=== PATIENT | male | born 1950 | race Caucasian/White ===

== ENCOUNTER 2017-08-19 06:24 | Day surgery (SDC) | payer OTHER ==
[2017-08-09 10:03] VITALS: BMI 24.0
--- NOTE | 2017-08-09 10:34 | PAT Medication Instructions ---
Service Date Aug 09, 2017. Current Home Medication List Albuterol Hfa (Ventolin Hfa), 2-4 PUFFS INH Q6H PRN for Shortness of Breath Hydrochlorothiazide (Hctz), 25 MG PO QAM Multivitamin (Multivitamin), 1 TAB PO QAM Omeprazole (Prilosec), 40 MG PO QAM Tizanidine (Zanaflex ), 4 MG PO BID PRN for Pain Medication Instructions For Your Scheduled Surgery - Hold the following medications the morning of surgery: Tizanidine (Zanaflex ), 4 MG PO BID PRN for Pain Hydrochlorothiazide (Hctz), 25 MG PO QAM Multivitamin (Multivitamin), 1 TAB PO QAM - Take the following medications the morning of surgery with a sip of water: Albuterol Hfa (Ventolin Hfa), 2-4 PUFFS INH Q6H PRN for Shortness of Breath (if needed) Omeprazole (Prilosec), 40 MG PO QAM - Take the following medications as scheduled the night before surgery: Tizanidine (Zanaflex ), 4 MG PO BID PRN for Pain (if needed) Albuterol Hfa (Ventolin Hfa), 2-4 PUFFS INH Q6H PRN for Shortness of Breath (if needed) If you have any questions please call us at [phone] or [phone] or [phone]
[2017-08-09 11:34] LABS: BASO % 0.2 %; BASO ABS # 0.02 K/uL (0-0.2); EOS % 0.5 %; EOS ABS # 0.05 K/uL (0-0.5); HEMATOCRIT 46.6 % (42-52); HEMOGLOBIN 16.3 g/dL (14.0-18.0); IG# 0.02 K/uL (0.00-0.02); LYMPH % 26.5 %; LYMPH ABS # 2.45 K/uL (1.2-3.4); MEAN CELL VOLUME 94.9 fL (80-100); MEAN CORPUSCULAR HEMOGLOBIN 33.2 pg (25-34); MEAN PLATELET VOLUME 10.7 fL (7.4-10.4); MONO % 10.2 %; MONO ABS # 0.94 K/uL (0.11-0.59); NEUT % 62.4 %; NEUT ABS # 5.76 K/uL (1.4-6.5); PLATELET COUNT 285 K/uL (130-400); RED CELL DISTRIBUTION WIDTH CV 14.9 % (11.5-14.5); RED CELL DISTRIBUTION WIDTH SD 51.5 fL (36.4-46.3); WHITE BLOOD COUNT 9.24 K/uL (4.8-10.8)
[2017-08-09 12:50] LABS: CALCIUM 9.1 mg/dl (8.5-10.1); CREATININE 0.84 mg/dl (0.60-1.40)
[~2017-08-19] VITALS: Ht 172.7 cm; Wt 72.2 kg
[~2017-08-19 06:24] MED LIST: CEFAZOLIN 2000MG IV PUSH 10 ML IV SCH; HYDR25TA4 PO; LACTATED RINGER'S 1000ML 1,000 ML IV SCH; MULT-506 PO; OMEP40CA41 PO; VNTHFA/IN INH; ZNF4 PO
[2017-08-19 07:02] VITALS: BP 157/90; PULSE 70; TEMP 36.5; O2SAT 99; Ht 172.7 cm; Wt 72.2 kg
[2017-08-19] MEDS ORDERED: FENTANYL CITRATE INJ 50 MCG/1 ML 2 ML VIAL ONE ×2 (07:39→08:57)
[2017-08-19] MEDS ORDERED: MIDAZOLAM HCL 1 MG/ML 2ML VIAL ONE (07:39)
--- NOTE | 2017-08-19 08:03 | History & Physical Bridge Note ---
H&P Re-Evaluation Bridge Note: I have examined the patient, reviewed the History & Physical and in the interval since the performance of the History & Physical I have noted the following changes of clinical significance: No changes noted
[2017-08-19] MEDS ORDERED: EpHEDrine SULFATE INJ 50 MG/ML AMP IV PRN (08:15)
[2017-08-19] MEDS ORDERED: FENTANYL CITRATE INJ 50 MCG/1 ML 2 ML VIAL IV PRN (08:15)
[2017-08-19] MEDS ORDERED: ATROPINE SULFATE 0.1 MG/ML 5ML SYR IV PRN (08:15)
[2017-08-19] MEDS ORDERED: ONDANSETRON INJ 2 MG/ML 2 ML VIAL IV PRN ×2 (08:15→10:00)
[2017-08-19] MEDS ORDERED: BUPIVACAINE/EPINEPHRINE 0.5% MPF 1:200,000 30 ML VIAL ONE (08:26)
[2017-08-19] MEDS ORDERED: PROPOFOL IV EMULSION 10 MG/ML 20 ML VIAL IV ONE (08:52)
[2017-08-19] MEDS ORDERED: LIDOCAINE HCL 2% 2 ML VIAL (20MG/ML) ONE (08:52)
[2017-08-19] MEDS ORDERED: DEXAMETHASONE SOD INJ 4 MG/ML VIAL ONE (08:59)
[2017-08-19] MEDS ORDERED: ONDANSETRON INJ 2 MG/ML 2 ML VIAL ONE (08:59)
[2017-08-19] MEDS ORDERED: EpHEDrine SULFATE 50MG/5ML SYR ONE (09:11)
[2017-08-19] MEDS ORDERED: GLYCOPYRROLATE INJ 0.2 MG/ML VIAL ONE (09:31)
[2017-08-19] MEDS ORDERED: SODIUM CHLORIDE 0.9% 1000ML 1,000 ML IV SCH (09:49)
[2017-08-19] MEDS ORDERED: HYDR-5688 PO (09:51)
--- NOTE | 2017-08-19 09:53 | Discharge Instructions ---
Discharge Instructions Date of Service Aug 19, 2017. Admission Reason for Admission: Left Inguinal Hernia Discharge Discharge Diagnosis / Problem: Left Inguinal Hernia Discharge Goals Goal(s): Decrease discomfort, Improve function Activity Recommendations Activity Limitations: as noted below Lifting Limitations: no more than 10 pounds Exercise/Sports Limitations: until after follow-up appointment May Resume Sexual Activity: after follow-up appointment Shower/Bathe: tomorrow Driving or Machine Use: resume 1 day after discharge . Instructions / Follow-Up Instructions / Follow-Up Please follow-up with Dr. Bauman in the office in 1-2 weeks. Please call the office at [phone] to make a follow-up appointment if you do not have one already. Please call the office with any questions or concerns. Current Hospital Diet Patient's current hospital diet: Discharge Diet Recommended Diet: Regular Diet Procedures Procedures Performed: Open Left Inguinal Hernia Repair with Mesh Pending Studies Studies pending at discharge: no Medical Emergencies . Who to Call and When: Medical Emergencies: If at any time you feel your situation is an emergency, please call 911 immediately. . Non-Emergent Contact Non-Emergency issues call your: Primary Care Provider, Surgeon Call Non-Emergent contact if: temperature is above 101.5, your pain is not controlled, wound has increased drainage, wound has increased redness . "Provider Documentation" section prepared by Tila Gee. . VTE Core Measure Inpt VTE Proph given/why not?: SCD's [place] Drug Monitoring Program Search Results: patient reviewed within database, no issues identified
--- NOTE | 2017-08-19 09:55 | [facility] Operative Report ---
Operative Report Operative Date Aug 19, 2017. Pre-Operative Diagnosis Left Inguinal Hernia Post-Operative Diagnosis Same as preoperative Procedure(s) Performed Open Left Inguinal Hernia Repair with Mesh Surgeon Dr. Moe Bauman Bilingual Teacher Assistant Surgeon(s) Tila Clancy PA-C Estimated Blood Loss 5ml Findings direct and indirect LIH Specimens None per surgeon Anesthesia LMA Complication(s) None Disposition Recovery Room / PACU Description of Procedure After informed consent was obtained the patient was taken to the operating room and placed in the supine position. After successful placement of the laryngeal mask airway, the Hunt catheter was placed and the lower groin was shaved and sterilely prepped and draped in usual fashion. An anal incision was made with 15 blade scalpel and carried down through the soft tissue using electrocautery. The external oblique aponeurosis was skeletonized and incised with a fresh blade. It was extended distally through the external ring as well as for several centimeters proximally using a Metzenbaum scissor. Blunt dissection was then used to delineate the cord and cord structures. I gently tease the cord structures off the pubic bone using a blunt finger. A Liu drain was placed around it. I immediately noted a direct hernia defect that was easily reducible. As we inspected the cord and cord structures we also found an indirect hernia sac. We able to use primarily blunt dissection was small amounts electrocautery to tease the hernia sac back down to its neck and dunk it back into the abdominal cavity where it remained reduced on its own. We then used a piece of polypropylene keyhole mesh as an onlay. It was secured distally to Tal's ligament laterally along the shelving portion of Poupart's ligament and medially along the midline musculature. All suturing was done with 0 Ethibond. The "arms" were wrapped around behind the cord and cord structures and secured underlying muscle. The mesh laid tension free without impinging on the cord. There was adequate hemostasis. We injected Marcaine around the edges of the mesh for postoperative analgesia. The wound was then thoroughly irrigated. We closed the external oblique aponeurosis with 2-0 Vicryl running fashion. Soft tissue was irrigated and closed using 3-0 Vicryl and skin was closed using 4-0 Monocryl. Some additional Marcaine was injected around the incision for analgesia and skin glue used as a dressing the patient was awaken extubated and transferred recovery in stable condition My physician's hair assistant was present throughout the entire case. She helped prepped the patient as well as retraction during my entire dissection. She also helped with wound closure and placed the dressings afterwards I attest to the content of the Intraoperative Record and any orders documented therein. Any exceptions are noted below.
[2017-08-19] MEDS ORDERED: HYDROCODONE/ACETAMIN 5/325MG TAB PO PRN ×2 (10:00)
--- NOTE | 2017-08-19 10:29 | Anesthesiology Progress Note ---
Anesthesia Post Op Note Date & Time Aug 19, 2017 at 10:29 Vital Signs Pain Intensity: 0 Vital Signs Past 12 Hours Date Time Temp Pulse Resp B/P (MAP) Pulse Ox O2 Delivery O2 Flow Rate FiO2 08/19/17 10:20 36.2 81 16 134/78 96 Room Air 08/19/17 10:10 82 16 131/83 96 Room Air 08/19/17 10:00 86 16 122/80 96 Oxymask 5 08/19/17 09:50 36.0 101 14 124/76 96 Oxymask 5 08/19/17 07:02 36.5 70 20 157/90 (112) 99 Room Air Notes Mental Status: alert / awake / arousable, participated in evaluation Pt Amnestic to Procedure: Yes Nausea / Vomiting: adequately controlled Pain: adequately controlled Airway Patency, RR, SpO2: stable & adequate BP & HR: stable & adequate Hydration State: stable & adequate Anesthetic Complications: no major complications apparent
[2017-08-19 10:35] VITALS: BP 119/77; PULSE 80; TEMP 36.5; O2SAT 98
[2017-08-19 11:05] VITALS: BP 131/84; PULSE 77; O2SAT 96
[2017-08-19] MEDS ORDERED: OXYCODONE/ACETAMINOPHEN 5-325 TAB ONE (11:20)
[2017-08-19] MEDS ORDERED: NURSING VERBAL MED ORDER ONE (11:30)
[2017-08-19 11:35] VITALS: BP 136/82; PULSE 70; O2SAT 96
[2017-08-19] MEDS ORDERED: OXYCODONE/ACETAMINOPHEN 5-325 TAB PO PRN (12:00)
[2017-08-19 12:35] VITALS: BP 149/81; PULSE 91; TEMP 36.8; O2SAT 95
== END 2017-08-19 12:50 | disposition home or self-care (01) ==
LOC: C.ACU 06:24
PROVIDERS: ATTEND Surgery
DX: K40.90 Unilateral inguinal hernia, without obstruction or gangrene, not specified as recurrent (principal); F13.20 Sedative, hypnotic or anxiolytic dependence, uncomplicated; K21.9 Gastro-esophageal reflux disease without esophagitis; M51.27 Other intervertebral disc displacement, lumbosacral region; N20.0 Calculus of kidney; H54.7 Unspecified visual loss; F17.200 Nicotine dependence, unspecified, uncomplicated; Z86.718 Personal history of other venous thrombosis and embolism; Z79.899 Other long term (current) drug therapy